=== PATIENT | female | born 1960 | race Caucasian/White ===

== ENCOUNTER → 2016-11-06 | Outpatient (CLI) | payer OTHER ==
--- OUTSIDE RECORDS SUMMARY | 2016-11-06 09:57 | XMS REPORT | Continuity of Care Document ---
Author Author [facility] Address Unknown Phone Unavailable Allergies Medications Problems Date Dx Coded Attending Type Code Diagnosis Diagnosed By 04/03/2008 DANNA PHD, QUINTEN V 300.4 MO DYSTHYMIC DIS 04/03/2008 DANNA PHD, QUINTEN V V61.10 RL RELATION COUNS 04/03/2008 300.4 MO DYSTHYMIC DIS 04/03/2008 V61.10 RL RELATION COUNS 04/03/2008 DANNA PHD, QUINTEN V 300.4 MO DYSTHYMIC DIS 04/03/2008 DANNA PHD, QUINTEN V V61.10 RL RELATION COUNS 06/16/2008 DANNA PHD, QUINTEN V 300.3 AN OBSESS COMP DIS 06/16/2008 DANNA PHD, QUINTEN V 314.00 CD ADHD INATTENTIVE 06/16/2008 300.3 AN OBSESS COMP DIS 06/16/2008 314.00 CD ADHD INATTENTIVE 06/16/2008 DANNA PHD, QUINTEN V 300.3 AN OBSESS COMP DIS 06/16/2008 DANNA PHD, QUINTEN V 314.00 CD ADHD INATTENTIVE 08/28/2014 BLAYNE CARRIZALES PREDICTIVE MAINTENANCE TECHNICIAN Ot 786.2 06/19/2015 Ot V76.12 06/19/2015 Ot V76.12 06/19/2015 HARLEY OAKES DO Ot V76.12 06/19/2015 BLAYNE CARRIZALES PREDICTIVE MAINTENANCE TECHNICIAN Ot 241.0 06/19/2015 BLAYNE CARRIZALES PREDICTIVE MAINTENANCE TECHNICIAN Ot 723.1 06/19/2015 BLAYNE CARRIZALES PREDICTIVE MAINTENANCE TECHNICIAN Ot 786.2 07/05/2015 BLAYNE CARRIZALES PREDICTIVE MAINTENANCE TECHNICIAN Ot V76.12 09/24/2015 BLAYNE CARRIZALES PREDICTIVE MAINTENANCE TECHNICIAN Ot M46.02 09/24/2015 BLAYNE CARRIZALES PREDICTIVE MAINTENANCE TECHNICIAN Ot M50.21 10/03/2015 BLAYNE CARRIZALES PREDICTIVE MAINTENANCE TECHNICIAN Ot M46.02 10/03/2015 BLAYNE CARRIZALES Ot M50.21 02/23/2016 NIMO DUENAS APRN Ot M79.671 PAIN IN RIGHT FOOT 02/29/2016 BLAYNE CARRIZALES Ot M79.671 PAIN IN RIGHT FOOT 03/13/2016 NIMO DUENAS APRN Ot M79.671 PAIN IN RIGHT FOOT Procedures Code [place] [address] RELATIONSHIP COUN /2 03/05/2009 25433 RELATIONSHIP COUN /2 12/29/2012 07109 RELATIONSHIP COUN 2 12/29/2012 42777 RELATIONSHIP COUN 2 12/29/2012 43133 RELATIONSHIP COUN /2 03/04/2013 58405 RELATIONSHIP COUN 09/2203/22/2014 Results Encounters ACCT No. Visit Date/Time Discharge Status Pt. Type Provider Facility Loc./Unit Complaint [id number] 03/01/2014 17:12:00 03/01/2014 23: 59:59 CLS Outpatient DANNA PHD, QUINTEN [place]once [id number] 12/22/2012 17:07:00 12/22/2012 23: 59:59 CLS Outpatient DANNA GAFFNEY, QUINTEN Ponce [id number] 02/28/2013 17:13:00 Document Registration
--- NOTE | 2016-11-07 12:31 | Diagnostic Imaging Report ---
Bilateral screening mammogram. The current study was also evaluated with a Computer Aided Detection (CAD) system. Indication: Screening. No current complaints stated on the questionnaire. COMPARISON: 06/19/2015. FINDINGS: The breasts are composed of scattered fibroglandular densities. There is no mass, architectural distortion, or suspicious cluster of calcification. Allowing for technique and positional differences, no suspicious change is seen. IMPRESSION: No significant change. ACR BI-RADS Category 2: Benign findings. Result letter will be mailed to the patient. Note: At least 10% of breast cancer is not imaged by mammography. Dictated by: Dictated on workstation # [id number]
== END ==
LOC: RAD 09:53
PROVIDERS: ATTEND Nurse Practitioner
DX: Z12.31 Encounter for screening mammogram for malignant neoplasm of breast (principal)
CPT/HCPCS: 77067

== ENCOUNTER 2017-11-20 17:09 | Emergency (ER) | payer BC, OTHER ==
[~2017-11-20] VITALS: Ht 165.1 cm; Wt 74.8 kg
[2017-11-20] MEDS ORDERED: fentaNYL INJECTION 100 MCG/2 ML AMP ONE (17:52)
--- NOTE | 2017-11-20 17:55 | ED Upper Extremity ---
General Chief Complaint: Upper Extremity Stated Complaint: L ARM INJ Nursing Triage Note: Pt c/o L arm pain. pt reports she fell and tried to catch herself, landing on L wrist. Nursing Sepsis Screen: No Definite Risk History of Present Illness Date Seen by Provider: Nov 20, 2017 Time Seen by Provider: 17:51 Initial Comments Patient presents to the ER by private conveyance with a chief complaint of a fall on outstretched hands just prior to arrival. She's having pain in her left forearm. She has no prior injury here. She has sensation in her fingers and inability to move them. She took [address] about 30 minutes ago but they have not kicked in yet. Allergies and Home Medications Allergies Coded Allergies: No Known Drug Allergies (Unverified , 11/20/17) Home Medications Hydrocodone/Acetaminophen 1 Each Tablet, 1-2 EACH PO Q4H PRN for BREAKTHROUGH PAIN Prescribed by: ALPHONSE RODRIGUEZ on 11/20/17 0283 Patient Home Medication List Home Medication List Reviewed: Yes Constitutional: No chills, No diaphoresis EENTM: No ear discharge, No hearing loss Respiratory: No cough, No short of breath Cardiovascular: No chest pain, No palpitations Gastrointestinal: No abdominal pain, No constipation, No diarrhea Genitourinary: No discharge, No dysuria Musculoskeletal: No back pain, No joint pain Past Ictxkrz-Hgpuci-Qfogme Hx Patient Social History Alcohol Use: Denies Use Smoking Status: Never a Smoker Recent Foreign Travel: No Contact w/Someone Who Travel: No Recent Infectious Disease Expo: No Physical Exam Vital Signs Vital Signs - First Documented 11/20/17 17:43 Temp 96.0 Pulse 66 Resp 18 B/P (MAP) 107/64 (78) Pulse Ox 99 Capillary Refill : Less Than 3 Seconds General Appearance: WD/WN, mild distress HEENT: PERRL/EOMI, pharynx normal Cardiovascular: normal peripheral pulses, regular rate, rhythm Respiratory: no respiratory distress, no accessory muscle use Gastrointestinal: non tender, soft Shoulder: normal inspection, non-tender, no evidence of injury, normal ROM Elbow/Forearm: normal inspection, non-tender, no evidence of injury, Left Wrist: Yes bone tenderness, Yes deformity, Yes pain (left), Yes soft tissue tenderness, Yes swelling Progress/Results/Core Measures Results/Orders My Orders Orders - ALPHONSE RODRIGUEZ Fentanyl Injection (Sublimaze Injection (11/20/17 18:00) Saline Lock/Iv-Start (11/20/17 17:53) Saline Lock/Iv-Start (11/20/17 18:17) Fentanyl Injection (Sublimaze Injection (11/20/17 18:30) Ondansetron Injection (Zofran Injectio (11/20/17 19:00) Hydromorphone Injection (Dilaudid Inject (11/20/17 19:00) Hydromorphone Injection (Dilaudid Inject (11/20/17 19:15) Ondansetron Injection (Zofran Injectio (11/20/17 19:15) Medications Given in ED Current Medications Medications Dose Ordered Sig/B[place]ivar Route Start Time Stop Time Status Last Admin Dose Admin Fentanyl Citrate 50 mcg ONCE ONCE IVP 11/20/17 18:00 11/20/17 18:01 DC 11/20/17 18:00 50 MCG Fentanyl Citrate 50 mcg ONCE ONCE IVP 11/20/17 18:30 11/20/17 18:31 DC 11/20/17 18:40 50 MCG Hydromorphone HCl 0.5 mg ONCE ONCE IVP 11/20/17 19:00 11/20/17 19:01 DC 11/20/17 18:58 0.5 MG Ondansetron HCl 4 mg ONCE ONCE IVP 11/20/17 19:00 11/20/17 19:01 DC 11/20/17 18:58 4 MG Vital Signs/I&O Vital Sign - Last 12Hours 11/20/17 17:43 Temp 96.0 Pulse 66 Resp 18 B/P (MAP) 107/64 (78) Pulse Ox 99 Blood Pressure Mean: 78 Diagnostic Imaging Diagonstic Imaging: Xray Plain Films/CT/US/NM/MRI: other (l wrist) Comments VIA [facility] [place], [place] NAME: DIYAHEBER MED REC#: [id number] PT STATUS: REG ER : 1960 PHYSICIAN: MARCOS BERGMAN MD ADMIT DATE: 11/20/17/ER Draft Date of Exam:11/20/17 WRIST, LEFT, 3 VIEWS OR MORE PATIENT HISTORY: Left wrist pain after fall. TECHNIQUE: Three views of the left wrist. COMPARISON: None. FINDINGS: There is an impacted, comminuted intra-articular fracture of the distal left radius. Alignment otherwise appears normal. The joint spaces are generally preserved. IMPRESSION: Impacted, comminuted intra-articular fracture of the distal left radius. Dictated on workstation # [id number] Dict: 11/20/17 1811 Trans: 11/20/17 1814 [id number] Interpreted by: ANTON ANDERSON MD Electronically signed by: Consults Consults : Consulting Physician: ROBBIE WALKER DO Consults Notes Discussed case and imaging's and he recommends splinting, ice, elevation, pain meds and follow up next week in the clinic. Departure Impression Impression: Primary Impression: Radial head fracture, closed Qualified Codes: S52.125A - Nondisplaced fracture of head of left radius, initial encounter for closed fracture Additional Impression: Fall Qualified Codes: W19.XXXA - Unspecified fall, initial encounter Disposition: 01 HOME, SELF-CARE Condition: Improved Departure-Patient Inst. Decision time for Depature: 18:33 Referrals: HARLEY OAKES DO (PCP/Family) Primary Care Physician Patient Instructions: Wrist Fracture (DC) Add. Discharge Instructions: Keep your left arm elevated, in the splint, use ice for 20 minutes every 2-4 hours for the first 2-3 days as needed for swelling or pain. Use 800 mg ibuprofen every 8 hours and 1-2 tablets of the hydrocodone every 4 hours as needed to control the pain. Hydrocodone will cause constipation so you should use stool softeners daily or MiraLAX as needed 1-4 times a day. Follow-up with Dr. Walker at his clinic at [phone] Thursday morning for an appointment next week. Return to care if you begin to experience severe swelling, loss of sensation or uncontrolled pain. All discharge instructions reviewed with patient and/or family. Voiced understanding. Scripts Hydrocodone/Acetaminophen (Hydrocodon-Acetaminophn 10-325) 1 Each Tablet 1-2 EACH PO Q4H Y for BREAKTHROUGH PAIN, #30 TAB 0 Refills Prov: ALPHONSE RODRIGUEZ 11/20/17 Copy Copies To 1: HARLEY OAKES DO; ROBBIE WALKER TITUS J Nov 20, 2017 17:55
[2017-11-20] MEDS ORDERED: fentaNYL INJECTION 100 MCG/2 ML AMP IVP ONE ×2 (18:00→18:30)
--- NOTE | 2017-11-20 18:14 | Diagnostic Imaging Report ---
PATIENT HISTORY: Left wrist pain after fall. TECHNIQUE: Three views of the left wrist. COMPARISON: None. FINDINGS: There is an impacted, comminuted intra-articular fracture of the distal left radius. Alignment otherwise appears normal. The joint spaces are generally preserved. IMPRESSION: Impacted, comminuted intra-articular fracture of the distal left radius. Dictated by: Dictated on workstation # [id number]
[2017-11-20] MEDS ORDERED: LISD50CA (18:19)
[2017-11-20] MEDS ORDERED: SPIR25TA3 (18:19)
[2017-11-20] MEDS ORDERED: OSPE60TA2 (18:19)
[2017-11-20] MEDS ORDERED: SIMV20TA3 (18:19)
[2017-11-20] MEDS ORDERED: BUPR300T51 (18:19)
[2017-11-20] MEDS ORDERED: MONT10TA24 (18:20)
[2017-11-20] MEDS ORDERED: HYDR-3820 PO (18:37)
[2017-11-20] MEDS ORDERED: HYDROmorphone (DILAUDID) 2 MG/ML VIAL IVP ONE ×2 (19:00→19:15)
[2017-11-20] MEDS ORDERED: ONDANSETRON 4 MG/2 ML (SDV) Z0FRAN IVP ONE ×2 (19:00→19:15)
[2017-11-20 19:16] VITALS: BP 115/78
== END 2017-11-20 19:16 | disposition home or self-care (01) ==
LOC: EDUNIT# 17:09 → ER 17:10
DX: S52.572A Other intraarticular fracture of lower end of left radius, initial encounter for closed fracture (principal); W18.30XA Fall on same level, unspecified, initial encounter
CPT/HCPCS: 29125; 73110; 96374; 96375; 96376

== ENCOUNTER → 2017-12-29 | Outpatient (CLI) | payer BC ==
[~2017-12-29] MED LIST: BUPR300T51; HYDR-3820 PO; LISD50CA; MONT10TA24; OSPE60TA2; SIMV20TA3; SPIR25TA3
[2017-12-29 09:33] LABS: FREE T4 (FREE THYROXINE) 1.19 NG/DL (0.70-1.48)
--- NOTE | 2017-12-29 12:01 | Diagnostic Imaging Report ---
PROCEDURE: US Thyroid. TECHNIQUE: Multiple Real-time grayscale images were obtained of the thyroid in various projections. INDICATION: Thyroid nodules. COMPARISON: 06/13/2014. FINDINGS: The right thyroid lobe measures 5.0 x 1.7 x 1.5 cm. A midpole cyst measuring 8 mm in maximal diameter shows no complexity and appears stable. The left thyroid lobe measures 5.2 x 1.5 x 2.1 cm, unchanged in volume. There are circumscribed hypoechoic mixed solid and predominantly cystic left lobe thyroid nodules, unchanged from the prior exam. The largest lesion is a simple cyst measuring 1.3 cm in the upper pole. There is heterogeneous enlargement of the isthmus with a nodule measuring 1.7 x 0.9 x 1.6 cm, increased from the prior exam when it measured 1.2 x 1.1 cm maximally. This is largely solid but heterogeneous in its echotexture. Portions of its borders are somewhat indiscrete and there may be a few areas of calcification having developed. In light of these changes, sampling of that mass is suggested which could be performed sonographically. IMPRESSION: The midline isthmic mass shows an increase in size and is predominantly solid with questionable developing calcifications. Portions of its borders are somewhat indistinct. Tissue sampling is suggested with sonographic guidance. Dictated by: Dictated on workstation # [id number]
== END ==
LOC: RAD 08:00
PROVIDERS: ATTEND Otolaryngology Otolaryngology/Facial Plastic Surgery
DX: E04.2 Nontoxic multinodular goiter (principal); L65.9 Nonscarring hair loss, unspecified
CPT/HCPCS: 36415; 76536; 84439; 84443

== ENCOUNTER → 2018-02-04 | Outpatient (CLI) | payer BC ==
--- NOTE | 2018-02-04 16:44 | Diagnostic Imaging Report ---
INDICATION: Isthmus nodule. EXAMINATION: Sonographic guidance was provided for Dr. Rodriguez for a fine-needle aspiration of a thyroid isthmus nodule. FINDINGS: Several images demonstrate a hypoechoic solid nodule of the left aspect of the thyroid isthmus. IMPRESSION: Sonographic guidance by Dr. Rodriguez for a thyroid FNA. Dictated by: Dictated on workstation # [id number]
== END ==
LOC: RAD 10:00
PROVIDERS: ATTEND Otolaryngology Otolaryngology/Facial Plastic Surgery
DX: E04.1 Nontoxic single thyroid nodule (principal)
CPT/HCPCS: 76942

== ENCOUNTER → 2018-04-27 | Outpatient (CLI) | payer BC ==
[~2018-04-27] MED LIST changes: -SPIR25TA3; +SPIR25TA5
--- NOTE | 2018-04-27 12:39 | Diagnostic Imaging Report ---
INDICATION: Routine screening. Comparison is made with prior mammogram from 11/06/2016 and 06/19/2015. 2-D and 3-D bilateral screening mammography was performed with a Computer Aided Detection (CAD) system. FINDINGS: Scattered fibroglandular densities are identified bilaterally. The parenchymal pattern is stable. No mass or malignant appearing microcalcifications are seen. The axillae are unremarkable. IMPRESSION: No mammographic features suspicious for malignancy are identified. ACR BI-RADS Category 1: Negative. Result letter will be mailed to the patient. Note: At least 10% of breast cancer is not imaged by mammography. Dictated by: Dictated on workstation # [id number]
== END ==
LOC: RAD 10:50
PROVIDERS: ATTEND Family Medicine
DX: Z12.31 Encounter for screening mammogram for malignant neoplasm of breast (principal)
CPT/HCPCS: 77067

== ENCOUNTER → 2018-07-05 | Outpatient (CLI) | payer BC ==
--- NOTE | 2018-07-05 17:44 | Diagnostic Imaging Report ---
PROCEDURE: US Thyroid. TECHNIQUE: Multiple real-time grayscale images were obtained of the thyroid in various projections. INDICATION: Thyroid gland nodules. COMPARISON: Comparison is made to study of 12/29/2017. FINDINGS: Right and left lobes of the thyroid gland measure 5.2 x 2.0 x 1.5 cm and 5.3 x 1.7 x 1.3 cm, respectively. These are not significantly changed. In addition, there are multiple hypoechoic nodules in both lobes of the thyroid gland. The largest nodule is in the isthmus and is not appreciable changed in size. This measures 1.6 x 0.9 x 1.5 cm. Additional nodules measure up to 1 cm in size in both lobes without evidence of new thyroid gland lesion or periglandular abnormality. Blood flow is unremarkable. IMPRESSION: Findings remain compatible with probable multinodular goiter with dominant 1.6 x 1.5 cm nodule in the isthmus. Dictated by: Dictated on workstation # [id number]
== END ==
LOC: RAD 14:41
PROVIDERS: ATTEND Otolaryngology Otolaryngology/Facial Plastic Surgery
DX: E04.2 Nontoxic multinodular goiter (principal)
CPT/HCPCS: 76536

== ENCOUNTER → 2018-09-09 | Outpatient (CLI) | payer BC ==
--- NOTE | 2018-09-09 17:39 | Diagnostic Imaging Report ---
INDICATION: Screening for osteoporosis. COMPARISON: There are no prior studies available for comparison. EXAMINATION: The bone mineral density of the hips and spine was measured. FINDINGS: The T-score for the spine is -1.5. This indicates osteopenia. The T-score for the left hip is -0.9 and for the right hip is -0.8. These values are at the lowest end of normal. IMPRESSION: 1. The bone mineral density of the spine indicates osteopenia. However, the bone mineral density for the hips is within normal limits. 2. See below National Osteoporosis Foundation guidelines on when to potentially initiate pharmacologic therapy. AP Spine L1-L4: [BMD (g/cm2): 1.026] [T-Score: -1.5] [Z-Score: -0.8] [BMD Previous: N/A] [BMD % Change: N/A] LT Hip Neck: [BMD (g/cm2): 0.893] [T-Score: -1.0] [Z-Score: -0.1] LT Hip Total: [BMD (g/cm2):0.897] [T-Score:-0.9] [Z-Score: -0.3] [BMD Previous: N/A] [BMD % Change: N/A] RT Hip Neck: [BMD (g/cm2):0.911] [T-Score:-0.9] [Z-Score:0.0] RT Hip Total: [BMD (g/cm2):0.911] [T-score:-0.8] [Z-Score:-0.2] [BMD Previous: N/A] [BMD % Change: N/A] *Indicates significant change from prior examination based on 95% confidence level. World Health Organization criteria for BMD interpretation classify patients as Normal (T-score at or above -1.0), Osteopenic (T-score between -1.0 and -2.5) or Osteoporotic (T-score at or below -2.5). LIMITATIONS AND MODIFICATION: None. FRACTURE RISK (FRAX SCORE): The ten year probability of (%): Major Osteoporotic Fracture: [N/A] Hip Fracture: [N/A] Based on the National Osteoporosis Foundation Guidelines, pharmacologic treatment should be initiated in any of the following, unless clinical conditions suggest otherwise: * Any patient with prior fragility fracture of the hip or vertebrae. A spine fracture indicates 5X risk for subsequent spine fracture and 2X risk for subsequent hip fracture. * Osteoporosis (T-score <-2.5). * Postmenopausal women and men age 50 and older with low bone mass/osteopenia (T-score between -1.0 and -2.5) by DXA and 10-year major osteoporotic fracture greater than 20% or a 10-year probability of hip fracture greater than 3%. These fracture risks are supplied above in the FRAX score, if applicable. * Clinician judgement and/or patient preferences may indicate treatment for people with 10-year fracture probabilities above or below these levels. Dictated by: Dictated on workstation # [id number]
== END ==
LOC: RAD 09:00
PROVIDERS: ATTEND Family Medicine
DX: Z13.820 Encounter for screening for osteoporosis (principal); M85.88 Other specified disorders of bone density and structure, other site; T14.8XXA Other injury of unspecified body region, initial encounter; Z78.0 Asymptomatic menopausal state
CPT/HCPCS: 77080

== ENCOUNTER → 2019-02-15 | Outpatient (CLI) | payer BC ==
--- NOTE | 2019-02-15 12:21 | Diagnostic Imaging Report ---
PROCEDURE: MRI left joint lower extremity without contrast. TECHNIQUE: Multiplanar, multisequence non contrast-enhanced MRI of the left lower extremity was accomplished. INDICATION: Pain and swelling of the lateral left ankle. COMPARISON: None FINDINGS: No acute fracture or dislocation is seen in the left ankle. Alignment appears normal. There is a small tibiotalar joint effusion. The anterior and posterior syndesmotic ligaments are intact. The anterior talofibular ligament is torn, likely chronic. The posterior talofibular ligament is intact. The calcaneofibular ligament appears to be intact. The deep fibers of the deltoid ligament are intact. The spring ligament is intact. The Lisfranc ligament is intact. The plantar fascia is not thickened. The sinus tarsi demonstrates mildly decreased fatty signal. The peroneal tendon is intact. There is a longitudinal split tear of the inframalleolar peroneus brevis tendon, with moderate peroneal tenosynovitis. The flexor tendons appear intact. The extensor tendons are intact. The musculature about the left ankle demonstrates no atrophy or focal edema. No soft tissue fluid collections are seen. Tarsal tunnel is unremarkable. IMPRESSION: 1. Longitudinal split tear of the left peroneus brevis tendon with moderate peroneal tenosynovitis. 2. Tear of the anterior talofibular ligament, appears chronic. 3. Small tibiotalar joint effusion. 4. Mildly decreased fatty signal in the sinus tarsi, please correlate clinically for signs of sinus tarsi syndrome. Dictated by: Dictated on workstation # [id number]
== END ==
LOC: RAD 08:33
PROVIDERS: ATTEND Orthopaedic Surgery
DX: S86.312A Strain of muscle(s) and tendon(s) of peroneal muscle group at lower leg level, left leg, initial encounter (principal); S93.492A Sprain of other ligament of left ankle, initial encounter; M65.872 Other synovitis and tenosynovitis, left ankle and foot; M76.72 Peroneal tendinitis, left leg
CPT/HCPCS: 73721

== ENCOUNTER → 2019-06-27 | Outpatient (CLI) | payer BC, OTHER ==
--- NOTE | 2019-06-27 11:28 | Diagnostic Imaging Report ---
INDICATION: Routine screening. Comparison is made with prior mammogram from 04/27/2018 and 11/06/2016. 2-D and 3-D bilateral screening mammography was performed with CAD. Scattered fibroglandular densities are identified bilaterally. No mass or malignant-appearing microcalcifications are seen. The axillae are unremarkable. IMPRESSION: BI-RADS Category 1 No mammographic features suspicious for malignancy are identified. ACR BI-RADS Category 1: Negative. Result letter will be mailed to the patient. Note: At least 10% of breast cancer is not imaged by mammography. Dictated by: Dictated on workstation # [id number]
== END ==
LOC: RAD 08:25
PROVIDERS: ATTEND Family Medicine
DX: Z12.31 Encounter for screening mammogram for malignant neoplasm of breast (principal); E04.2 Nontoxic multinodular goiter
CPT/HCPCS: 77067

== ENCOUNTER → 2019-06-27 | Outpatient (CLI) | payer BC, OTHER ==
--- NOTE | 2019-06-27 09:30 | Diagnostic Imaging Report ---
PROCEDURE: US Thyroid. TECHNIQUE: Multiple real-time grayscale images were obtained of the thyroid in various projections. INDICATION: 59-year-old female for follow-up thyroid nodule. COMPARISON: 07/05/2018 FINDINGS: Right thyroid lobe: The right thyroid lobe measures 4.6 x 1.4 x 1.3 cm. There is a background of homogeneous echogenicity. There are 2 anechoic cysts with the larger having a colloid artifact. The dominant cyst is wider than tall and has smooth margins with maximum dimension of 0.8 cm. This is unchanged since prior examination. Isthmus: Thyroid isthmus measures 0.4 cm in thickness. There is a solid hypoechoic nodule at the level of the thyroid isthmus that is wider than tall measuring 1.4 x 0.7 x 1.5 cm (previously 1.6 x 0.9 x 1.5 cm), and has no internal echogenic foci and the margins remain circumscribed. Left thyroid lobe: The left thyroid lobe measures 4.7 x 1.7 x 1.6 cm. It demonstrates a background of homogeneous echogenicity. There are scattered cysts and solid nodules within the left thyroid lobe that are all stable since prior examination. The cysts have a colloid ring down artifact present indicative of benign cysts. IMPRESSION: 1. Multiple bilateral thyroid nodules are unchanged since prior examination have no features of malignancy. ACR TI-RADS: TR2 (2). TI-RADS Recommendations:TR2 - Not Suspicious. No FNA. Dictated by: Dictated on workstation # [id number]
== END ==
LOC: RAD 08:27
PROVIDERS: ATTEND Otolaryngology Otolaryngology/Facial Plastic Surgery
DX: Z12.31 Encounter for screening mammogram for malignant neoplasm of breast (principal); E04.2 Nontoxic multinodular goiter
CPT/HCPCS: 76536

== ENCOUNTER → 2020-12-27 | Outpatient (CLI) | payer OTHER ==
[~2020-12-27] MED LIST changes: +ACHYD1T PO; -BUPR300T51; +BUPR300T98; -HYDR-3820 PO; -MONT10TA24; +MONT10TA32; +SIMV20TA26; -SIMV20TA3
--- NOTE | 2020-12-27 14:46 | Diagnostic Imaging Report ---
PROCEDURE: US Thyroid. TECHNIQUE: Multiple real-time grayscale images were obtained of the thyroid in various projections. INDICATION: Thyroid nodules, follow-up. COMPARISON: Correlation is made with prior exam of 06/27/2019. FINDINGS: Right lobe of the thyroid measures 5.1 x 1.4 x 1.3 cm and left lobe measures 4.5 x 1.2 x 1.5 cm. A cystic lesion in the right lobe measures approximately 7 mm x 6 mm, similar to prior exam. Cystic hypoechoic nodule in the upper pole of the left lobe measures 13 mm x 11 mm, similar to prior exam. A solid nodule in the lower pole is approximately 8 mm x 5 mm. Isthmus nodule is 15 mm x 7 mm x 14 mm, similar to prior exam. IMPRESSION: Overall stable bilateral thyroid nodules when compared with examination from 06/27/2019. Dictated by: Dictated on workstation # [id number]
== END ==
LOC: RAD 13:45
PROVIDERS: ATTEND Otolaryngology Otolaryngology/Facial Plastic Surgery
DX: E04.2 Nontoxic multinodular goiter (principal)
CPT/HCPCS: 76536

== ENCOUNTER → 2021-05-10 | Outpatient (CLI) | payer OTHER ==
--- NOTE | 2021-05-10 12:01 | Diagnostic Imaging Report ---
INDICATION: Cough. TIME OF EXAM: 11:45 AM Correlation is made with prior chest from 08/04/2014. FINDINGS: The heart size is normal. The pulmonary vascularity is unremarkable. The lungs are clear. No infiltrate, effusion or pneumothorax is detected. IMPRESSION: No acute cardiopulmonary process is detected. Dictated by: Dictated on workstation # [id number]
== END ==
LOC: RAD 11:31
PROVIDERS: ATTEND Family Medicine
DX: R05 Cough (principal); R09.81 Nasal congestion; Z20.822 Contact with and (suspected) exposure to COVID-19
CPT/HCPCS: 71046

== ENCOUNTER → 2022-09-16 | Outpatient (CLI) | payer BC, OTHER ==
[~2022-09-16] MED LIST changes: +MONT-40; -MONT10TA32
--- NOTE | 2022-09-16 15:35 | Diagnostic Imaging Report ---
INDICATION: Routine screening. Comparison is made with prior mammogram of 06/27/2019 and 04/27/2018. 2-D and 3-D bilateral screening mammography was performed with CAD. Scattered fibroglandular densities are identified bilaterally. The parenchymal pattern is stable. No mass or malignant-appearing microcalcifications are seen. Axillae are unremarkable. IMPRESSION: No mammographic features suspicious for malignancy are identified. ACR BI-RADS Category 1: Negative. Result letter will be mailed to the patient. Note: At least 10% of breast cancer is not imaged by mammography. BI-RADS Category 1 Dictated by: Dictated on workstation # [id number]
== END ==
LOC: RAD 09:32
PROVIDERS: ATTEND Nurse Practitioner Family
DX: Z12.31 Encounter for screening mammogram for malignant neoplasm of breast (principal)
CPT/HCPCS: 77063; 77067

== ENCOUNTER 2023-04-20 10:40 | Emergency (ER) | payer BC ==
[~2023-04-20] VITALS: Ht 162.5 cm; Wt 77.1 kg
--- NOTE | 2023-04-20 11:08 | ED Neurological Problem ---
General Chief Complaint: Neurological Problems Stated Complaint: FACIAL NUMBNESS Nursing Triage Note: PT AMB TO RM 5 WITH CC OF NUMBNESS TO THE RIGHT SIDE OF HER FACE, INCLUDING HER UPPER LIP, FOREHEAD, AND AROUND THE OUTSIDE OF THE RIGHT EYE AND A HEADACHE THAT STARTED AT 0830 THIS MORNING. Source: patient Exam Limitations: no limitations History of Present Illness Date Seen by Provider: Apr 20, 2023 Time Seen by Provider: 10:51 Initial Comments This pleasant 63-year-old woman presents to the emergency room with complaints of right-sided facial numbness that she first noticed around 0830 which is her last known well time. Symptoms started as a right perioral numbness. The numbness then progressed in a marching fashion up toward the right periorbital region and then into the right forehead. During interview and exam she also noted the right roof of her mouth was beginning to feel numb. She denies any other neurologic deficits of any kind. She has not experienced the symptoms in the past. She has associated headache. Headache seems to be escalating throughout the morning. She has not taken any medications for her symptoms yet. She denies any acute illnesses within the last couple of weeks. She did have a fairly significant URI type of illness about 1 month ago. She also babysat her grandchildren last week and they had viral illnesses. At this time there is no facial weakness or droop. Symptoms do seem to involve the right forehead. She has no history of CVA. She is mildly hypertensive during assessment. She is mildly anxious about her present condition. Stroke activation was not paged as there were no actual measurable neurologic deficits found on exam. Allergies and Home Medications Allergies Coded Allergies: No Known Drug Allergies (Unverified , 11/20/17) Patient Home Medication List Home Medication List Reviewed: Yes Bupropion HCl (Bupropion Xl) 300 Mg Tab.er.24h, (Reported) Entered as Reported by: MARIANO VILLA on 11/20/171818 Cephalexin (Cephalexin) 500 Mg Tablet, 500 MG PO TID Prescribed by: ASHLYN LIU on 04/20/23 1441 Hydrocodone Bit/Acetaminophen (HYDROcodone/APAP 10/325 TABLET) 1 Each Tablet, 1- 2 EACH PO Q4H PRN for BREAKTHROUGH PAIN Prescribed by: ALPHONSE RODRIGUEZ on 11/20/17 1837 Lisdexamfetamine Dimesylate (Vyvanse) 50 Mg Capsule, (Reported) Entered as Reported by: MARIANO VILLA on 11/20/171818 Montelukast Sodium (Montelukast Sodium) 10 Mg Tablet, (Reported) Entered as Reported by: MARIANO VILLA on 11/20/171819 Ospemifene (Osphena) 60 Mg Tablet, (Reported) Entered as Reported by: MARIANO VILLA on 11/20/171818 Prednisone (Prednisone) 20 Mg Tab, 40 MG PO DAILY Prescribed by: ASHLYN LIU on 04/20/23 1441 Simvastatin (Simvastatin) 20 Mg Tablet, (Reported) Entered as Reported by: MARIANO VILLA on 11/20/171818 Spironolactone (Spironolactone) 25 Mg Tablet, (Reported) Entered as Reported by: MARIANO VILLA on 11/20/171818 Valacyclovir HCl (Valacyclovir) 1,000 Mg Tablet, 1,000 MG PO TID Prescribed by: ASHLYN LIU on 04/20/23 1441 Review of Systems Review of Systems Constitutional: no symptoms reported Eyes: No Symptoms Reported Ears, Nose, Mouth, Throat: see HPI Respiratory: no symptoms reported Cardiovascular: no symptoms reported Gastrointestinal: no symptoms reported Genitourinary: no symptoms reported : No Musculoskeletal: no symptoms reported Skin: no symptoms reported Psychiatric/Neurological: See HPI Endocrine: No Symptoms Reported Hematologic/Lymphatic: No Symptoms Reported Past Oadjrfs-Qwsskz-Fjgrck Hx Patient Social History Tobacco Use?: No Substance use?: No Alcohol Use?: Yes Alcohol Frequency: Several times a month Past Medical History Surgery/Hospitalization HX: TYPE 2 DM Surgeries: Yes (PLASTIC SURGERY) Appendectomy, Gallbladder Respiratory: Yes Asthma Cardiac: Yes High Cholesterol Neurological: No Genitourinary: No Gastrointestinal: No Musculoskeletal: No Endocrine: No HEENT: No Cancer: No Did You Recieve Any Treatments: No Psychosocial: No Physical Exam Vital Signs Vital Signs - First Documented 04/20/23 10:45 Pulse 78 B/P (MAP) 156/81 (106) Pulse Ox 96 O2 Delivery Room Air Capillary Refill : Height, Weight, BMI Height: 5'5.00" Weight: 165lbs. oz. 74.115234nw; 29.00 BMI Method:Stated General Appearance: WD/WN, no apparent distress HEENT: PERRL/EOMI, normal ENT inspection, TMs normal, pharynx normal Neck: normal inspection Respiratory: lungs clear, normal breath sounds, no respiratory distress Cardiovascular: regular rate, rhythm, no edema, no murmur Gastrointestinal: non tender, soft Extremities: non-tender, normal inspection, no pedal edema Neurologic/Psychiatric: locomotive engineer II-XII nml as tested, no motor/sensory deficits, alert, normal mood/affect, oriented x 3 Crainal Nerves: normal hearing, normal speech, PERRL, other (Patient describes an altered sensation with light touch from the right perioral region up through the right forehead, although there is no actual loss of sensation.) Coordination/Gait: normal finger to nose (Normal osop-dn-wvmr), normal gait Motor/Sensory: no motor deficit, no sensory deficit, no pronator drift Skin: normal color, warm/dry Progress/Results/Core Measures Results/Orders Lab Results Laboratory Tests Test 04/20/23 10:53 04/20/23 11:51 04/20/23 11:52 04/20/23 13:12 Range/Units White Blood Count 8.9 4.3-11.0 10^3/uL Red Blood Count 4.65 3.80-5.11 10^6/uL Hemoglobin 13.8 11.5-16.0 g/dL Hematocrit 43 35-52 % Mean Corpuscular Volume 93 80-99 fL Mean Corpuscular Hemoglobin 30 25-34 pg Mean Corpuscular Hemoglobin Concent 32 32-36 g/dL Red Cell Distribution Width 13.0 10.0-14.5 % Platelet Count 324 130-400 10^3/uL Mean Platelet Volume 10.3 9.0-12.2 fL Immature Granulocyte % (Auto) 0 % Neutrophils (%) (Auto) 46 42-75 % Lymphocytes (%) (Auto) 48 H 12-44 % Monocytes (%) (Auto) 5 0-12 % Eosinophils (%) (Auto) 1 0-10 % Basophils (%) (Auto) 0 0-10 % Neutrophils # (Auto) 4.1 1.8-7.8 10^3/uL Lymphocytes # (Auto) 4.2 H 1.0-4.0 10^3/uL Monocytes # (Auto) 0.4 0.0-1.0 10^3/uL Eosinophils # (Auto) 0.1 0.0-0.3 10^3/uL Basophils # (Auto) 0.0 0.0-0.1 10^3/uL Immature Granulocyte # (Auto) 0.0 0.0-0.1 10^3/uL Prothrombin Time 13.3 12.2-14.7 SEC INR Comment 1.0 0.8-1.4 Activated Partial Thromboplast Time 31 24-35 SEC D-Dimer < 0.27 0.00-0.49 UG/ML Sodium Level 141 135-145 MMOL/L Potassium Level 3.9 3.6-5.0 MMOL/L Chloride Level 106 98-107 MMOL/L Carbon Dioxide Level 26 21-32 MMOL/L Anion Gap 9 5-14 MMOL/L Blood Urea Nitrogen 13 7-18 MG/DL Creatinine 0.92 0.60-1.30 MG/DL Estimat Glomerular Filtration Rate 69 BUN/Creatinine Ratio 14 Glucose Level 103 70-105 MG/DL Calcium Level 9.9 8.5-10.1 MG/DL Corrected Calcium 8.5-10.1 MG/DL Total Bilirubin 0.6 0.1-1.0 MG/DL Aspartate Amino Transf (AST/SGOT) 26 5-34 U/L Alanine Aminotransferase (ALT/SGPT) 28 0-55 U/L Alkaline Phosphatase 100 40-136 U/L Troponin I < 0.028 <0.028 NG/ML Total Protein 8.3 H 6.4-8.2 GM/DL Albumin 4.6 H 3.2-4.5 GM/DL Glucometer 75 70-110 MG/DL Urine Color YELLOW Urine Clarity SL CLOUDY Urine pH 6.0 5-9 Urine Specific [place] 1.025 H 1.016-1.022 Urine Protein NEGATIVE NEGATIVE Urine Glucose (UA) NEGATIVE NEGATIVE Urine Ketones NEGATIVE NEGATIVE Urine Nitrite POSITIVE H NEGATIVE Urine Bilirubin NEGATIVE NEGATIVE Urine Urobilinogen 0.2 < = 1.0 MG/DL Urine Leukocyte Esterase NEGATIVE NEGATIVE Urine RBC (Auto) TRACE-I H NEGATIVE Urine RBC 2-5 H /HPF Urine WBC 5-10 H /HPF Urine Squamous Epithelial Cells 0-2 /HPF Urine Crystals NONE /LPF Urine Bacteria LARGE H /HPF Urine Casts NONE /LPF Urine Mucus NEGATIVE /LPF Urine Culture Indicated YES Influenza Type A (RT-PCR) Not Detected Not Detecte Influenza Type B (RT-PCR) Not Detected Not Detecte SARS-CoV-2 RNA (RT-PCR) Not Detected Not Detecte Micro Results Microbiology 04/20/23 Urine Culture - Final, Complete Escherichia coli My Orders Orders - ASHLYN HER MD Cbc With Automated Diff (04/20/23 11:06) Protime With Inr (04/20/23 11:06) Partial Thromboplastin Time (04/20/23 11:06) Comprehensive Metabolic Panel (04/20/23 11:06) Fibrin Degradation Products (04/20/23 11:06) Troponin I [place] (04/20/23 11:06) Ua Culture If Indicated (04/20/23 11:06) Accucheck Stat ONCE (04/20/23 11:06) Ed Iv/Invasive Line Start (04/20/23 11:06) Vital Signs Stroke Patient Q15M (04/20/23 11:06) Ct Head Wo-R/O Stroke (04/20/23 11:06) O2 (04/20/23 11:06) Monitor-Rhythm Ecg Trace Only (04/20/23 11:06) Dysphagia Screening Tool Q10MX1 (04/20/23 11:06) Acetaminophen Tablet (Acetaminophen Ta (04/20/23 12:15) Urine Culture (04/20/23 11:52) Mri Brain W/O Contrast (04/20/23 12:27) Covid 19 Inhouse Test (04/20/23 12:28) Influenza A And B By Pcr (04/20/23 12:28) Ketorolac Injection (Toradol Injection) (04/20/23 14:15) Medications Given in ED Vital Signs/I&O 04/20/23 04/20/23 10:45 14:42 Pulse 78 84 B/P (MAP) 156/81 (106) 136/76 Pulse Ox 96 O2 Delivery Room Air Blood Pressure Mean: 106 Progress Progress Note : Progress Note Patient was interviewed and examined at 1051. She was found to have no true neurologic deficits during exam. With light touch to the face sensation felt different on the right than the left, but sensation was fully intact. Patient had accompanying headache. Work-up was pursued including CT of the head which was reviewed by me. I appreciated no acute abnormalities. The radiologist report was reviewed and also demonstrated no acute abnormalities. Labs were reviewed in their entirety. By my interpretation there were no significant abnormalities. Lab evaluation included CBC, CMP, troponin, magnesium, and coagulation panel including D-dimer. These studies were all grossly normal on my interpretation. It was noted that there was a lymphocytic predominance on the CBC differential which would suggest the possibility of viral illness. Screening swabs for influenza and COVID were both negative. Urinalysis demonstrated pyuria suggestive of urinary tract infection. Patient was quite concerned about the possibility of a significant neurologic pathology, especially given the history of very significant dementia in her mother. MRI was available at that time and offered to the patient, she requested to proceed with MRI. MRI was obtained and report was reviewed. No acute abnormalities were appreciated. Specifically, there was no mention of demyelinating plaques, CVA, mass, or hemorrhage. Patient's symptoms were stable and did not progressed throughout her ER stay. Blood pressure did normalize without treatment. 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 I offered prednisone and acyclovir therapy for empiric treatment of possible Sanchez's palsy. She was also prescribed antibiotics for urinary tract infection. See discharge instructions for further discussion. Patient did pass a dysphagia screen prior to drinking or taking medications. Patient was reassessed and reevaluated multiple times during her ER stay. Diagnostic Imaging Diagonstic Imaging: CT Plain Films/CT/US/NM/MRI: head Comments NAME: HEBER KEANE [facility] REC#: [id number] PT STATUS: DEP ER : 1960 PHYSICIAN: ASHLYN HER MD ADMIT DATE: 04/20/23/ER Signed Date of Exam:04/20/23 CT HEAD WO-R/O STROKE PROCEDURE: CT head wo r/o stroke. TECHNIQUE: Multiple contiguous axial images were obtained through the brain without the use of intravenous contrast. Auto Exposure Controls were utilized during the CT exam to meet ALARA standards for radiation dose reduction. INDICATION: Facial numbness. FINDINGS: There is no intracranial hemorrhage, hydrocephalus, cerebral edema, mass, mass effect nor evidence for elevated pressures. Basilar cisterns patent. No sulcal effacement. Cerebral cortical volume unremarkable for age. Orbits, sinuses and calvarium nonacute. No suspicious intraluminal arterial hyperdensities. IMPRESSION: No hemorrhage, edema or acute appearing abnormality identified. Dictated by: Dictated on workstation # [id number] Dict: 04/20/23 1205 Trans: 04/20/231711 [id number] Interpreted by: STEPHANIE ASHLEY Electronically signed by: STEPHANIE ASHLEY 04/20/231711 Diagonstic Imaging: MRI Plain Films/CT/US/NM/MRI: head Comments NAME: HEBER KEANE [facility] REC#: [id number] PT STATUS: DEP ER : 1960 PHYSICIAN: ASHLYN HER MD ADMIT DATE: 04/20/23/ER Signed Date of Exam:04/20/23 MRI BRAIN W/O CONTRAST PROCEDURE: MR imaging of the brain without contrast. TECHNIQUE: Multiplanar, multisequence MR imaging of the brain was performed without contrast. INDICATION: Right facial paresthesias. FINDINGS: There are no foci of abnormal diffusion restriction. There are no findings of acute or subacute ischemic infarct. No focal or generalized cerebral edema. There is no hydrocephalus or findings of an elevation to the intracranial pressures. The cerebral cortical volume is normal for age. There is minimal periventricular and subcortical white matter disease, likely small vessel sequelae, and the burden in this patient is very slight and unremarkable for age. No suspicious white matter pathology. The brainstem and posterior fossa are nonacute. The midline structures are nondisplaced. The orbits, paranasal sinuses, and mastoids are unremarkable. No cerebellopontine angle mass or mass effect. IMPRESSION: Unremarkable noncontrasted brain MRI. In particular, no hemorrhage or infarct. No edema or acute pathology. Dictated by: Dictated on workstation # [id number] Dict: 04/20/23 1323 Trans: 04/20/231711 [id number] Interpreted by: STEPHANIE ASHLEY Electronically signed by: STEPHANIE ASHLEY 04/20/231711 Departure Impression Primary Impression: Right facial numbness Additional Impressions: Acute headache Qualified Codes: R51.9 - Headache, unspecified Urinary tract infection Qualified Codes: N39.0 - Urinary tract infection, site not specified Disposition: 01 HOME, SELF-CARE Condition: Improved Departure-Patient Inst. Decision time for Depature: 14:08 Referrals: HARLEY OAKES DO (PCP/Family) Primary Care Physician Patient Instructions: Sanchez's palsy, Urinary tract infections in adults Add. Discharge Instructions: CT and MRI imaging performed in the emergency room were unremarkable. Your symptoms seem to be most consistent with Sanchez's palsy. Other syndromes such as atypical migraine or stroke are much less likely. Start the valacyclovir and prednisone as soon as possible. Take prednisone early in the day to avoid sleep disturbance and with food or milk to avoid stomach upset. You may take Tylenol and/or ibuprofen for headache. Drink plenty of clear liquids to stay well-hydrated. Eat and drink with caution as you may be at risk for mcmullen with hot food or fluid or choking because of numbness of the lips and mouth. If facial droop that affects your blink and eye closure occurs, please protect your eyes with sunglasses and other protective eyewear, especially when in [place], [place], or windy environments. If you are unable to fully close your eye when sleeping at night, you may use medical tape to tape the eyelid shut while you sleep. If you develop neurologic symptoms beyond what is typical for Sanchez's palsy, return to the emergency room promptly. Follow-up with your primary care provider later in the week for repeat evaluation. Complete your antibiotic as prescribed. Follow-up on urine culture results in 2 or 3 days to ensure you are taking the most appropriate antibiotic for your culture results. Call with questions or concerns. Return to the ER if you have worsening symptoms despite following these instructions. All discharge instructions reviewed with patient and/or family. Voiced understanding. Scripts Valacyclovir HCl (Valacyclovir) 1,000 Mg Tablet 1000 MG PO TID, #21 TAB Prov: ASHLYN HER MD 04/20/23 Prednisone (Prednisone) 20 Mg Tab 40 MG PO DAILY, #14 TAB 0 Refills Prov: ASHLYN HER MD 04/20/23 Cephalexin (Cephalexin) 500 Mg Tablet 500 MG PO TID, #21 TAB Prov: ASHLYN HER MD 04/20/23 Copy Copies To 1: HARLEY OAKES JOSHUA T MD Apr 20, 2023 11:08
[2023-04-20 11:17] LABS: ALBUMIN 4.6 GM/DL (3.2-4.5); BASOPHILS % (AUTO) 0 % (0-10); EOSINOPHILS # (AUTO) 0.1 10^3/uL (0.0-0.3); EOSINOPHILS % (AUTO) 1 % (0-10); HEMATOCRIT 43 % (35-52); HEMOGLOBIN 13.8 g/dL (11.5-16.0); LYMPHOCYTES # (AUTO) 4.2 10^3/uL (1.0-4.0); LYMPHOCYTES % (AUTO) 48 % (12-44); MEAN CORPUSCULAR HEMOGLOBIN 30 pg (25-34); MEAN CORPUSCULAR HGB CONC 32 g/dL (32-36); MEAN CORPUSCULAR VOLUME 93 fL (80-99); MEAN PLATELET VOLUME 10.3 fL (9.0-12.2); MONOCYTES # (AUTO) 0.4 10^3/uL (0.0-1.0); MONOCYTES % (AUTO) 5 % (0-12); NEUTROPHILS # (AUTO) 4.1 10^3/uL (1.8-7.8); NEUTROPHILS % (AUTO) 46 % (42-75); PLATELET COUNT 324 10^3/uL (130-400); WHITE BLOOD COUNT 8.9 10^3/uL (4.3-11.0)
[2023-04-20 11:18] LABS: CHLORIDE 106 MMOL/L (98-107); POTASSIUM 3.9 MMOL/L (3.6-5.0); SODIUM 141 MMOL/L (135-145)
[2023-04-20 11:19] LABS: CALCIUM 9.9 MG/DL (8.5-10.1)
[2023-04-20 11:20] LABS: GLUCOSE 103 MG/DL (70-105); TOTAL PROTEIN 8.3 GM/DL (6.4-8.2)
[2023-04-20 11:21] LABS: CARBON DIOXIDE 26 MMOL/L (21-32)
[2023-04-20 11:22] LABS: BILIRUBIN,TOTAL 0.6 MG/DL (0.1-1.0)
[2023-04-20 11:23] LABS: ALKALINE PHOSPHATASE 100 U/L (40-136); CREATININE SERUM 0.92 MG/DL (0.60-1.30); GFR ESTIMATED 69
[2023-04-20 11:24] LABS: BUN/CREATININE RATIO 14
[2023-04-20 11:26] LABS: ALANINE AMINOTRANSFERASE 28 U/L (0-55)
[2023-04-20 11:30] LABS: PROTHROMBIN TIME PATIENT 13.3 SEC (12.2-14.7)
[2023-04-20 11:31] LABS: PARTIAL THROMBOPLASTIN TIME 31 SEC (24-35)
[2023-04-20 11:35] LABS: FIBRIN DEGRADATION PRODUCTS < 0.27 UG/ML (0.00-0.49)
[2023-04-20 11:56] LABS: BILIRUBIN,URINE NEGATIVE (NEGATIVE); CLARITY,URINE SL CLOUDY; COLOR,URINE YELLOW; GLUCOSE, URINE (UA) NEGATIVE (NEGATIVE); KETONES,URINE NEGATIVE (NEGATIVE); LEUKOCYTE ESTERASE ,URINE NEGATIVE (NEGATIVE); NITRITE,URINE POSITIVE (NEGATIVE); PROTEIN,URINE NEGATIVE (NEGATIVE)
--- NOTE | 2023-04-20 12:09 | Diagnostic Imaging Report ---
PROCEDURE: CT head wo r/o stroke. TECHNIQUE: Multiple contiguous axial images were obtained through the brain without the use of intravenous contrast. Auto Exposure Controls were utilized during the CT exam to meet ALARA standards for radiation dose reduction. INDICATION: Facial numbness. FINDINGS: There is no intracranial hemorrhage, hydrocephalus, cerebral edema, mass, mass effect nor evidence for elevated pressures. Basilar cisterns patent. No sulcal effacement. Cerebral cortical volume unremarkable for age. Orbits, sinuses and calvarium nonacute. No suspicious intraluminal arterial hyperdensities. IMPRESSION: No hemorrhage, edema or acute appearing abnormality identified. Dictated by: Dictated on workstation # [id number]
[2023-04-20 12:12] LABS: BACTERIA,URINE LARGE /HPF; SQUAMOUS EPITHELIAL CELL,UR 0-2 /HPF
[2023-04-20] MEDS ORDERED: ACETAMINOPHEN 500 MG TABLET PO ONE (12:15)
--- NOTE | 2023-04-20 13:30 | Diagnostic Imaging Report ---
PROCEDURE: MR imaging of the brain without contrast. TECHNIQUE: Multiplanar, multisequence MR imaging of the brain was performed without contrast. INDICATION: Right facial paresthesias. FINDINGS: There are no foci of abnormal diffusion restriction. There are no findings of acute or subacute ischemic infarct. No focal or generalized cerebral edema. There is no hydrocephalus or findings of an elevation to the intracranial pressures. The cerebral cortical volume is normal for age. There is minimal periventricular and subcortical white matter disease, likely small vessel sequelae, and the burden in this patient is very slight and unremarkable for age. No suspicious white matter pathology. The brainstem and posterior fossa are nonacute. The midline structures are nondisplaced. The orbits, paranasal sinuses, and mastoids are unremarkable. No cerebellopontine angle mass or mass effect. IMPRESSION: Unremarkable noncontrasted brain MRI. In particular, no hemorrhage or infarct. No edema or acute pathology. Dictated by: Dictated on workstation # [id number]
[2023-04-20] MEDS ORDERED: KETOROLAC 30 MG/ML VIAL IVP ONE (14:15)
[2023-04-20] MEDS ORDERED: VALA10007 PO ×2 (14:27→14:41)
[2023-04-20] MEDS ORDERED: CEPH500T PO ×2 (14:27→14:41)
[2023-04-20] MEDS ORDERED: PRD20T PO ×2 (14:27→14:41)
[2023-04-20 14:42] VITALS: BP 136/76
== END 2023-04-20 14:42 | disposition home or self-care (01) ==
LOC: EDUNIT# 10:40 → ER 10:43
DX: N39.0 Urinary tract infection, site not specified (principal); R20.0 Anesthesia of skin; R51.9 Headache, unspecified; Z20.822 Contact with and (suspected) exposure to COVID-19
CPT/HCPCS: 36415; 70450; 70551; 80053; 81000; 82947; 84484; 85025; 85379; 85610; 85730; 87077; 87088; 87186; 87636; 93041